=== PATIENT | male | born 1965 | race Caucasian/White ===

== ENCOUNTER 2016-11-03 14:23 | Inpatient (IN) | payer OTHER ==
[2016-11-03] MEDS ORDERED: NS 1,000 ML IV ONE ×2 (14:49→15:56)
--- NOTE | 2016-11-03 14:52 | EDPHY ---
H & P Stated Complaint: n/v/d x 1 month, sent by pcp, low blood pressure, new DM2 med Source: Patient - Personal History Current Tetanus/Diphtheria Vaccine: Unsure Current Tetanus Diphtheria and Acellular Pertussis (TDAP): Unsure - Medical/Surgical History Hx Asthma: No Hx Chronic Respiratory Disease: No Hx Diabetes: No Hx Cardiac Disease: No Hx Renal Disease: No Hx Cirrhosis: No Hx Alcoholism: No Hx HIV/AIDS: No Hx Splenectomy or Spleen Trauma: No Other PMH: DM2, HTN, ankelosing spondylitis, urethral stricture - Social History Smoking Status: Never smoked Time Seen by Provider: 11/03/16 14:38 HPI/ROS: CHIEF COMPLAINT: Nausea vomiting diarrhea HISTORY OF PRESENT ILLNESS: This is a 50-year-old male presenting to the emergency room sent by PCP Dr. Vu for nausea vomiting diarrhea intermittent since mid September. Patient reports having the symptoms with the onset of metformin, metformin was stopped symptoms somewhat resolved. Patient was started on Januvia same symptoms started up again, Januvia discontinued last Sunday symptoms somewhat resolved. Glyburide was started on Sunday nausea vomiting diarrhea lightheaded symptoms started on Sunday, patient discontinued glyburide. Patient states he was able to tolerate water with yogurt this morning no active vomiting today the complaining of nausea and watery diarrhea. Generalized weakness, denies any chest pain or shortness of breath REVIEW OF SYSTEMS: Constitutional: No fever. chills. Generalized weakness decreased p.o. intake Eyes: No discharge. ENT: No sore throat. Cardiovascular: No chest pain, no palpitations. Respiratory: No cough, no shortness of breath. Gastrointestinal: abdominal cramping with nausea vomiting diarrhea Genitourinary: No hematuria. Musculoskeletal: No back pain. Skin: No rashes. Neurological: No headache. (Maria Del Carmen Caballero) - Physical Exam Exam: General Appearance: Alert, no distress. Eyes: Pupils equal and round no pallor or injection. ENT, Mouth: Mucous membranes dry Respiratory: There are no retractions, lungs are clear to auscultation. Cardiovascular: Tachycardia no gallop no murmur Gastrointestinal: Abdomen is soft, nondistended, diffuse tenderness on palpation, no masses, hypoactive bowel sounds . Neurological: No focal deficits Skin: No rash. Pallor Musculoskeletal: Neck is supple nontender. Extremities: symmetrical, full range of motion. Psychiatric: Patient is oriented X 3, there is no agitation. (Maria Del Carmen Caballero) Constitutional: Initial Vital Signs Temperature (C) 36.5 C 11/03/16 14:28 Heart Rate 128 H 11/03/16 14:28 Respiratory Rate 18 11/03/16 14:28 Blood Pressure 78/63 L 11/03/16 14:28 O2 Sat (%) 95 11/03/16 14:28 O2 Delivery Mode Room Air Allergies/Adverse Reactions: No Known Allergies Allergy (Unverified 11/03/16 14:27) Home Medications: Medication Instructions Recorded Cholecalciferol Vit D3 [Vitamin D3 2,000 units PO DAILY 11/03/16 (*)] Diclofenac Sodium 75 mg PO BID PRN 11/03/16 Herbals/Supplements -Info Only 1 ea PO DAILY 11/03/16 Lisinopril [Zestril 20 mg (*)] 20 mg PO DAILY 11/03/16 Ranitidine HCl [Zantac 75] 75 mg PO BID PRN 11/03/16 glyBURIDE [Glyburide] 5 mg PO DAILY 11/03/16 sitaGLIPtin PHOSPHATE [Januvia 100 100 mg PO DAILY 11/03/16 MG (*)] Medical Decision Making ED Course/Re-evaluation: Discussed the plan of care: And IV fluids for dehydration, CBC, BMP, lactate, Zofran 1555: Discussed patient admitted with hospitalist 1600: Discussed advanced with patient, for further treatment and evaluation. Repeat vital signs BP 87/60 hr 87 (Maria Del Carmen Caballero) Differential Diagnosis: Other differential diagnosis considered but not limited to sepsis, gastroenteritis and infectious diarrhea (Maria Del Carmen Caballero) Other Provider: The patient was initially seen and evaluated by Maria Del Carmen BLEVINS. Please see their dictation for complete details. Additionally I obtained the following history: The patient has had ongoing diarrhea since beginning diabetes medications October 02. He was started on Metformin and subsequently developed diarrhea, gas, and body aches. He discontinued the Metformin and started Januvia though his symptoms did not change. He stopped all diabetes medications and diarrhea improved. He re-tried Metformin again and diarrhea returned for 1 day. Switched to Januvia and developed vomiting with continued diarrhea. This week he started Glyburide, by mid week Sunday he was vomiting with diarrhea. The patient saw his PCP who told him to come to the ED for further evaluation. He denies hematemesis or hematochezia. The patient takes Zantac daily for GERD which seems to help. I reviewed the database, medical/surgical history, and ED course. On my physical examination I found the following: Abdomen is benign. Plan: Labs, fluids, and urinalysis. The midlevel and I discussed the care, treatment, and disposition of the patient. (Kristel Alvarez) - Data Points Laboratory Results: Laboratory Results 11/03/16 14:44 11/03/16 14:44 11/03/16 11/03/16 11/03/16 14:44 14:44 14:44 WBC 10.34 10^3/uL H 10^3/uL (3.80-9.50) RBC 5.01 10^6/uL 10^6/uL (4.40-6.38) Hgb 15.2 g/dL g/dL (13.7-17.5) Hct 45.4 % % (40.0-51.0) MCV 90.6 fL fL (81.5-99.8) MCH 30.3 pg pg (27.9-34.1) MCHC 33.5 g/dL g/dL (32.4-36.7) RDW 13.7 % % (11.5-15.2) Plt Count 429 10^3/uL H 10^3/uL (150-400) MPV 8.5 fL L fL (8.7-11.7) Neut % (Auto) 66.2 % % (39.3-74.2) Lymph % (Auto) 19.5 % % (15.0-45.0) [place] % (Auto) 10.7 % % (4.5-13.0) Eos % (Auto) 1.5 % % (0.6-7.6) Baso % (Auto) 0.9 % % (0.3-1.7) Nucleat RBC Rel Count 0.0 % % (0.0-0.2) Absolute Neuts (auto) 6.85 10^3/uL H 10^3/uL (1.70-6.50) Absolute Lymphs (auto) 2.02 10^3/uL 10^3/uL (1.00-3.00) Absolute Monos (auto) 1.11 10^3/uL H 10^3/uL (0.30-0.80) Absolute Eos (auto) 0.15 10^3/uL 10^3/uL (0.03-0.40) Absolute Basos (auto) 0.09 10^3/uL 10^3/uL (0.02-0.10) Absolute Nucleated RBC 0.00 10^3/uL 10^3/uL (0-0.01) Immature Gran % 1.2 % H % (0.0-1.1) Immature Gran # 0.12 10^3/uL H 10^3/uL (0.00-0.10) VBG Lactic Acid Sodium 138 mEq/L mEq/L (134-144) Potassium 4.9 mEq/L mEq/L (3.5-5.2) Chloride 106 mEq/L mEq/L (97-110) Carbon Dioxide 15 mEq/l L mEq/l (22-31) Anion Gap 17 mEq/L H mEq/L (8-16) BUN 68 mg/dL H mg/dL (7-23) Creatinine 6.1 mg/dL H mg/dL (0.7-1.3) Estimated GFR 10 Glucose 129 mg/dL H mg/dL (70-100) Calcium 9.8 mg/dL mg/dL (8.5-10.4) Total Bilirubin 1.4 mg/dL mg/dL (0.1-1.4) Conjugated Bilirubin 0.5 mg/dL mg/dL (0.0-0.5) Unconjugated Bilirubin 0.9 mg/dL mg/dL (0.0-1.1) AST 14 IU/L L IU/L (17-59) ALT 29 IU/L IU/L (21-72) Alkaline Phosphatase 65 IU/L IU/L (38-126) Total Protein 7.3 g/dL g/dL (6.3-8.2) Albumin 4.5 g/dL g/dL (3.5-5.0) 11/03/16 14:44 WBC RBC Hgb Hct MCV MCH MCHC RDW Plt Count MPV Neut % (Auto) Lymph % (Auto) [place] % (Auto) Eos % (Auto) Baso % (Auto) Nucleat RBC Rel Count Absolute Neuts (auto) Absolute Lymphs (auto) Absolute Monos (auto) Absolute Eos (auto) Absolute Basos (auto) Absolute Nucleated RBC Immature Gran % Immature Gran # VBG Lactic Acid 1.4 mmol/L mmol/L (0.7-2.1) Sodium Potassium Chloride Carbon Dioxide Anion Gap BUN Creatinine Estimated GFR Glucose Calcium Total Bilirubin Conjugated Bilirubin Unconjugated Bilirubin AST ALT Alkaline Phosphatase Total Protein Albumin Medications Given: Discontinued Medications Sodium Chloride (Ns) 1,000 mls @ 0 mls/hr IV ONCE ONE PRN Reason: Wide Open Stop: 11/03/16 14:50 Last Admin: 11/03/16 15:00 Dose: 1,000 mls Sodium Chloride (Ns) 1,000 mls @ 0 mls/hr IV ONCE ONE PRN Reason: Wide Open Stop: 11/03/16 15:57 Last Admin: 11/03/16 15:55 Dose: 1,000 mls Ondansetron HCl (Zofran) 4 mg IVP EDNOW ONE Stop: 11/03/16 14:55 Last Admin: 11/03/16 16:04 Dose: Not Given Departure - Departure Disposition: [facility] Inpatient Acute Clinical Impression: Dehydration Acute renal failure (ARF) Qualifiers: Acute renal failure type: unspecified Qualified Code(s): N17.9 - Acute kidney failure, unspecified Condition: Good
[2016-11-03] MEDS ORDERED: ONDANSETRON 4 MG/2 ML VIAL IVP ONE (14:54)
[2016-11-03 14:55] LABS: % IMMATURE GRANULYOCYTES 1.2 % (0.0-1.1); ABSOLUTE IMMATURE GRANULOCYTES 0.12 10^3/uL (0.00-0.10); ADD DIFF? NO; ADD MORPH? NO; ADD SCAN? NO; ATYPICAL LYMPHOCYTE FLAG 10 (0-99); FRAGMENT RBC FLAG 0 (0-99); HEMATOCRIT 45.4 % (40.0-51.0); HEMOGLOBIN 15.2 g/dL (13.7-17.5); LEFT SHIFT FLG 30 (0-99); LIPEMIA HEMOLYSIS FLAG 80 (0-99); MEAN CELL HEMOGLOBIN 30.3 pg (27.9-34.1); MEAN CELL HEMOGLOBIN CONCENTR. 33.5 g/dL (32.4-36.7); MEAN CELL VOLUME 90.6 fL (81.5-99.8); MEAN PLATELET VOLUME 8.5 fL (8.7-11.7); PLATELET CLUMPS FLAG 0 (0-99); PLATELET COUNT 429 10^3/uL (150-400); RED BLOOD CELL COUNT 5.01 10^6/uL (4.40-6.38); RED CELL DISTRIBUTION WIDTH 13.7 % (11.5-15.2)
[2016-11-03 15:10] LABS: ANION GAP 17 mEq/L (8-16); CALCIUM 9.8 mg/dL (8.5-10.4); CARBON DIOXIDE 15 mEq/l (22-31); CHLORIDE 106 mEq/L (97-110); CREATININE 6.1 mg/dL (0.7-1.3); GLOMERULAR FILTRATION RATE 10; GLUCOSE 129 mg/dL (70-100); POTASSIUM 4.9 mEq/L (3.5-5.2); SODIUM 138 mEq/L (134-144)
[2016-11-03 15:34] LABS: ALBUMIN 4.5 g/dL (3.5-5.0); BILIRUBIN,TOTAL 1.4 mg/dL (0.1-1.4); BILIRUBIN-CONJUGATED 0.5 mg/dL (0.0-0.5); BILIRUBIN-UNCONJUGATED 0.9 mg/dL (0.0-1.1); TOTAL PROTEIN 7.3 g/dL (6.3-8.2)
[2016-11-03] MEDS ORDERED: ONDANSETRON 4 MG/2 ML VIAL IVP PRN (17:13)
[2016-11-03] MEDS ORDERED: PROMETHAZINE HCL 25 MG TAB PO PRN (17:13)
[2016-11-03] MEDS ORDERED: ONDANSETRON DISINTEGRATING 4 MG TAB PO PRN (17:13)
[2016-11-03] MEDS ORDERED: LORazepam 2 MG/ML INJ IVP PRN (17:13)
[2016-11-03] MEDS ORDERED: ACETAMINOPHEN 325 MG TAB PO PRN (17:13)
[2016-11-03] MEDS ORDERED: oxyCODONE IR 5 MG TAB PO PRN (17:13)
[2016-11-03] MEDS ORDERED: D50W 25 GM/50 ML SYR IVP PRN (17:18)
[2016-11-03] MEDS ORDERED: DICLOFENAC SODIUM 75 MG TAB PO PRN (17:19)
[2016-11-03] MEDS: NS 1,000 ML IV SCH (17:49)
[2016-11-03] MEDS: INSULIN LISPRO 100 UNIT/ML SC SCH (18:12)
--- NOTE | 2016-11-03 19:03 | PDGENHP ---
History and Physical - Chief Complaint n/v/hypotension - History of Present Illness 50 yo M with PMH of recently diagnosed DM2 presenting with about 1 month of on and off GI sxs including n/v/diarrhea that he believes has been precipitated by his new DM meds. He states he was diagnosed with DM in August, and started on an uptitration of metformin. He did well initially, but when he got to 4 tablets per day, he began having significant diarrhea for 3-4 days. When he spoke to his rough rounder machine, a plan was made to switch him to Januvia, unfortunately he began again having the same sxs. He was then switched to glyburide but again had the same issues. He notes he had profuse diarrhea most of the month, along with n/v and abdominal pain. He went to see his PCP today, who became concerned that he looked awful and that his bp was low, and he was sent here for further eval. During the last month, he has not had any labs checked. He takes diclofenac for ankylosing spondylitis and has been on lisinopril for hypertension. He notes he continued taking both of those medications, though slightly less regularly. He states he has not been urinating as much as he normally does and he is not sure he is emptying his bladder all the way when he goes. He has had urethral strictures in the past and is followed by Dr. Sullivan. He has lost 24 pounds unintentionally over the last 3 weeks. History Information - Allergies/Home Medication List Allergies/Adverse Reactions: No Known Allergies Allergy (Unverified 11/03/16 14:27) Home Medications: Cholecalciferol Vit D3 [Vitamin D3 (*)] 2,000 units PO DAILY 11/03/16 [Last Taken Unknown] Diclofenac Sodium 75 mg PO BID PRN 11/03/16 [Last Taken 11/02/16] Herbals/Supplements -Info Only 1 ea PO DAILY 11/03/16 [Last Taken Unknown] Lisinopril [Zestril 20 mg (*)] 20 mg PO DAILY 11/03/16 [Last Taken Unknown] Ranitidine HCl [Zantac 75] 75 mg PO BID PRN 11/03/16 [Last Taken 11/02/16] glyBURIDE [Glyburide] 5 mg PO DAILY 11/03/16 [Last Taken 11/01/16] sitaGLIPtin PHOSPHATE [Januvia 100 MG (*)] 100 mg PO DAILY 11/03/16 [Last Taken 10/27/16] I have personally reviewed and updated: family history, medical history, social history, surgical history - Past Medical History diabetes type 2, GERD, hypertension Additional medical history: gout. ankylosing spondylitis. urethral stricture s /p multiple interventions. esophageal ring/stricture s/p multiple dilations - Surgical History Additional surgical history: cystoscopy for urethral stricture - Family History Positive for: non-pertinent Additional family history: patient adopted--family hx unknown - Social History Smoking Status: Never smoked Alcohol Use: Sober (quit 3 months ago) Drug Use: None Review of Systems ROS: 10pt was reviewed & negative except for what was stated in HPI & below Physical Exam Temp Pulse Resp BP Pulse Ox 36.7 C 84 16 115/70 96 11/03/16 17:03 11/03/16 17:03 11/03/16 17:03 11/03/16 17:03 11/03/16 17:03 Constitutional: no apparent distress, appears nourished Eyes: PERRL, anicteric sclera Ears, Nose, Mouth, Throat: moist mucous membranes, hearing normal Cardiovascular: regular rate and rhythym, no murmur, rub, or gallop, No edema Respiratory: no respiratory distress, no rales or rhonchi Gastrointestinal: normoactive bowel sounds, soft, non-tender abdomen, no palpable masses Genitourinary: no bladder fullness, no bladder tenderness Skin: warm, normal color Musculoskeletal: full muscle strength, no muscle tenderness, No asymmetric calves Neurologic: AAOx3 Psychiatric: interacting appropriately, not anxious, not encephalopathic Lab Data & Imaging Review 11/03/16 14:44 11/03/16 14:44 WBC 10.34 10^3/uL (3.80-9.50) H 11/03/16 14:44 RBC 5.01 10^6/uL (4.40-6.38) 11/03/16 14:44 Hgb 15.2 g/dL (13.7-17.5) 11/03/16 14:44 Hct 45.4 % (40.0-51.0) 11/03/16 14:44 MCV 90.6 fL (81.5-99.8) 11/03/16 14:44 MCH 30.3 pg (27.9-34.1) 11/03/16 14:44 MCHC 33.5 g/dL (32.4-36.7) 11/03/16 14:44 RDW 13.7 % (11.5-15.2) 11/03/16 14:44 Plt Count 429 10^3/uL (150-400) H 11/03/16 14:44 MPV 8.5 fL (8.7-11.7) L 11/03/16 14:44 Neut % (Auto) 66.2 % (39.3-74.2) 11/03/16 14:44 Lymph % (Auto) 19.5 % (15.0-45.0) 11/03/16 14:44 [place] % (Auto) 10.7 % (4.5-13.0) 11/03/16 14:44 Eos % (Auto) 1.5 % (0.6-7.6) 11/03/16 14:44 Baso % (Auto) 0.9 % (0.3-1.7) 11/03/16 14:44 Nucleat RBC Rel Count 0.0 % (0.0-0.2) 11/03/16 14:44 Absolute Neuts (auto) 6.85 10^3/uL (1.70-6.50) H 11/03/16 14:44 Absolute Lymphs (auto) 2.02 10^3/uL (1.00-3.00) 11/03/16 14:44 Absolute Monos (auto) 1.11 10^3/uL (0.30-0.80) H 11/03/16 14:44 Absolute Eos (auto) 0.15 10^3/uL (0.03-0.40) 11/03/16 14:44 Absolute Basos (auto) 0.09 10^3/uL (0.02-0.10) 11/03/16 14:44 Absolute Nucleated RBC 0.00 10^3/uL (0-0.01) 11/03/16 14:44 Immature Gran % 1.2 % (0.0-1.1) H 11/03/16 14:44 Immature Gran # 0.12 10^3/uL (0.00-0.10) H 11/03/16 14:44 VBG Lactic Acid 1.4 mmol/L (0.7-2.1) 11/03/16 14:44 Sodium 138 mEq/L (134-144) 11/03/16 14:44 Potassium 4.9 mEq/L (3.5-5.2) 11/03/16 14:44 Chloride 106 mEq/L (97-110) 11/03/16 14:44 Carbon Dioxide 15 mEq/l (22-31) L 11/03/16 14:44 Anion Gap 17 mEq/L (8-16) H 11/03/16 14:44 BUN 68 mg/dL (7-23) H 11/03/16 14:44 Creatinine 6.1 mg/dL (0.7-1.3) H 11/03/16 14:44 Estimated GFR 10 11/03/16 14:44 Glucose 129 mg/dL (70-100) H 11/03/16 14:44 POC Glucose 74 mg/dL (70-100) 11/03/16 17:35 Calcium 9.8 mg/dL (8.5-10.4) 11/03/16 14:44 Total Bilirubin 1.4 mg/dL (0.1-1.4) 11/03/16 14:44 Conjugated Bilirubin 0.5 mg/dL (0.0-0.5) 11/03/16 14:44 Unconjugated Bilirubin 0.9 mg/dL (0.0-1.1) 11/03/16 14:44 AST 14 IU/L (17-59) L 11/03/16 14:44 ALT 29 IU/L (21-72) 11/03/16 14:44 Alkaline Phosphatase 65 IU/L (38-126) 11/03/16 14:44 Total Protein 7.3 g/dL (6.3-8.2) 11/03/16 14:44 Albumin 4.5 g/dL (3.5-5.0) 11/03/16 14:44 Assessment & Plan Assessment: Acute renal failure (ARF) (Acute) Dehydration (Acute) 50 yo M with relatively new dx of DM admitted with ARDEN in setting of 1 month of n/v/diarrhea # ARDEN: likely pre renal versus ischemic ATN given history of prolonged n/v/ diarrhea, weight loss and hypotension. This occurred in the setting of new tx for DM and likely ARDEN exacerbated by continued lisinopril and diclofenac use. Unfortunately, no labs drawn earlier, so unclear when renal function began to decline, but now creatinine of 6 from prior baseline of 1.2. Will check urine studies including UA, urine Na, creatinine as well as renal US and bladder scan. Will hold lisinopril/diclofenac and continue IVF overnight. If all pre renal would expect significant improvement, if not will need to consult renal in am. Has hx of urethral stricture and prior arden related to same, US to eval for s/s of hydro. Patient followed by Dr. Sullivan. # DM: with significant side effects to metformin, januvia and glyburide. SSI for now, currently blood sugars slightly low. # HTN: holding dale-i, bp currently on the low end in setting of above # GERD: continue ranitidine # ankylosing spondylitis: on diclofenac as an OP which is held given arden, will start prn opiates, he is followed by rheum # dispo: IP status, high risk presenting issue requiring close monitoring in house Patient new to my care. Old records reviewed and summarized as above. Care plan reviewed with ER doctor including plans for w/u of ARDEN.
[2016-11-03 20:40] LABS: COLOR YELLOW; LEUKOCYTE ESTERASE,URINE NEGATIVE (NEGATIVE); NITRITE,URINE NEGATIVE (NEGATIVE)
[2016-11-03 20:50] LABS: MUCUS TRACE /lpf (NONE-1+)
[2016-11-03] MEDS: HEPARIN 5,000 UNIT/0.5 ML SYR SC SCH (21:01)
[2016-11-04] MEDS: NS 1,000 ML IV SCH ×4 (00:38→20:07)
[2016-11-04 05:14] LABS: % IMMATURE GRANULYOCYTES 0.9 % (0.0-1.1); ABSOLUTE IMMATURE GRANULOCYTES 0.06 10^3/uL (0.00-0.10); ADD DIFF? NO; ADD MORPH? NO; ADD SCAN? NO; ATYPICAL LYMPHOCYTE FLAG 10 (0-99); FRAGMENT RBC FLAG 0 (0-99); HEMATOCRIT 36.2 % (40.0-51.0); HEMOGLOBIN 11.7 g/dL (13.7-17.5); LEFT SHIFT FLG 40 (0-99); LIPEMIA HEMOLYSIS FLAG 80 (0-99); MEAN CELL HEMOGLOBIN 29.9 pg (27.9-34.1); MEAN CELL HEMOGLOBIN CONCENTR. 32.3 g/dL (32.4-36.7); MEAN CELL VOLUME 92.6 fL (81.5-99.8); MEAN PLATELET VOLUME 8.5 fL (8.7-11.7); PLATELET CLUMPS FLAG 0 (0-99); PLATELET COUNT 322 10^3/uL (150-400); RED BLOOD CELL COUNT 3.91 10^6/uL (4.40-6.38); RED CELL DISTRIBUTION WIDTH 13.7 % (11.5-15.2)
[2016-11-04 05:33] LABS: ANION GAP 8 mEq/L (8-16); CALCIUM 8.8 mg/dL (8.5-10.4); CARBON DIOXIDE 18 mEq/l (22-31); CHLORIDE 115 mEq/L (97-110); CREATININE 3.2 mg/dL (0.7-1.3); GLOMERULAR FILTRATION RATE 21; GLUCOSE 81 mg/dL (70-100); POTASSIUM 5.4 mEq/L (3.5-5.2); SODIUM 141 mEq/L (134-144)
[2016-11-04] MEDS: HEPARIN 5,000 UNIT/0.5 ML SYR SC SCH ×3 (05:53→21:57)
[2016-11-04] MEDS ORDERED: FAMOTIDINE 20 MG TAB PO PRN (09:00)
[2016-11-04] MEDS: INSULIN LISPRO 100 UNIT/ML SC SCH ×3 (09:18→19:25)
--- NOTE | 2016-11-04 09:27 | HOSPPROG ---
Hospitalist Progress Note Assessment/Plan: Patient is a 50 yo M with new dx of DM admitted with ARDEN in setting of 1 month of n/v/diarrhea. Today is my first encounter with the patient/chart reviewed. *Acute renal failure likely due to dehydration had n/v/diarrhea had dose of Metformin increased recently urine studies show no protein, Na 29 ultrasound pending on normal saline will ask Dr Alarcon to follow even though he has improved *Hyperkalemia mild/will recheck in a.m. *hx of urethral stricture f/u with Dr Sullivan *DM newly diagnosed holding all oral agents glucoses stable *HTN ACEI / on hold due to the above *GERD Ranitidine *Ankylosing spondylitis diclofenac on hold/prn opiates followed by rheumatology *Plan: Dr Alarcon to see today/ patient is very anxious to be dc/ explained to him with his elevated creat, he will likely need another midnight. Subjective: D is feeling much better today/would very much like to go home, but is willing to stay if necessary. Objective: Vital Signs Temp Pulse Resp BP Pulse Ox 36.9 C 74 18 99/63 L 96 11/04/16 08:00 11/04/16 08:00 11/04/16 08:00 11/04/16 08:00 11/04/16 08:00 Laboratory Results 11/04/16 04:15 11/04/16 04:15 11/03/16 11/04/16 11/05/16 05:59 05:59 05:59 Intake Total 2000 Output Total 750 800 Balance 1250 -800 - Physical Exam Constitutional: no apparent distress, appears nourished Eyes: PERRL Ears, Nose, Mouth, Throat: hearing normal Cardiovascular: regular rate and rhythym, no murmur, rub, or gallop Respiratory: no respiratory distress Skin: warm, normal color Musculoskeletal: full muscle strength Neurologic: AAOx3 Psychiatric: interacting appropriately, not anxious ICD10 Worksheet Patient Problems: Problems Problem Status Onset Acute renal failure (ARF) Acute Dehydration Acute
--- NOTE | 2016-11-04 13:17 | GCON ---
[f rep st] CONSULTATION NEPHROLOGY CONSULTATION DATE OF CONSULTATION: 11/04/2016 REASON FOR CONSULTATION: Acute kidney injury. 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 H istory was obtained from the patient, who is an excellent historian. Additional history was obtaine d through the medical records. The patient was in his baseline state of health when screening studies demonstrated an elevated fast ing glucose. He went on to have a hemoglobin A1c which was increased at 8.2. Since that time, he h as worked on diet and exercise, but he has also been tried on oral diabetic medications. He was ini tially started on metformin, but ultimately developed diarrhea with this. He has since been tried o n Januvia and is having similar symptoms. The patient switched back and took an additional dose of metformin and developed even worsening diarrhea. Around that time, he began developing orthostasis and weakness. Further evaluation revealed significant hypotension, and he was referred to the emerg ency room, where he was found to be in acute kidney injury. Since that time, he has been responding well to intravenous saline. The patient has ankylosing spondylitis. He follows with Rheumatology for this. He is on diclofenac 75 mg p.o. b.i.d. This medicine made his blood pressure worse, and he was started on lisinopril. With this, his creatinine was running in the low 1's. His blood pressure was coming under better co ntrol. At the time of admission, the patient's creatinine level was 6.1, with a baseline of approximately 1 .3. As related to the above issues, we were asked by Aggie Suresh to assist in the patient's tasneem al diagnosis and management. PAST MEDICAL HISTORY: 1. Diabetes mellitus type 2, recent diagnosis, following with Dr. Kristel Andrews. 2. Hypertension. 3. Ankylosing spondylitis. 4. Gout. PAST SURGICAL HISTORY: Includes cystoscopy for urethral stricture. ALLERGIES: No known allergies. HOME MEDICATIONS: Vitamin D 2000 units daily, diclofenac 75 mg b.i.d., herbals and supplements peng y, lisinopril 20 mg daily, ranitidine 75 mg b.i.d., glyburide 5 mg daily. FAMILY HISTORY: The patient is adopted. SOCIAL HISTORY: The patient is single. He lives in [place]. 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 He grew up in [facility]. He does not drink alcohol or smoke cigarettes. REVIEW OF SYSTEMS: A full 12-system review was obtained. This is notable primarily for his signifi cant weakness and orthostasis on presentation. He was having nausea, vomiting and diarrhea. All ot her findings on the review are essentially negative. PHYSICAL EXAM: GENERAL: At the time of exam, the patient is comfortable, appropriate and alert. V ITAL SIGNS: Temperature 36.9, pulse 74, blood pressure 99/63. HEENT: The patient is normocephalic , atraumatic. Eyes show sclerae are clear. Oropharynx shows some coating on the tongue, otherwise normal. NECK: No lymphadenopathy, thyromegaly. LUNGS: Clear to auscultation bilaterally. CARDIO VASCULAR: Regular rate and rhythm, without gallops or rubs. ABDOMEN: Soft, nontender. No organom egaly. /RECTAL: Deferred. EXTREMITIES: No lower extremity edema. INTEGUMENT: Generally clear . NEURO: No focal findings. LABORATORY STUDIES: Urinalysis normal, urine sodium 29, urine creatinine 190.2. White count 6.8, h ematocrit 36.2, platelets 322. Sodium 141, potassium 5.4, chloride 115, bicarb 18, creatinine 3.2. IMPRESSION AND PLAN: 1. Acute kidney injury. The patient has hemodynamically mediated acute kidney injury. He is also already showing a very nice recovery. a. I spent time reviewing renal hemodynamics with the patient. The combination of his nonsteroidal and his HO inhibitor does cause significant issues with auto regulation when he becomes dry. Thus , his acute kidney injury was exacerbated in the face of decreased intravascular volume. b. The patient appeared to be tolerating the combo reasonably well, but at this point, I do think i t is reasonable to choose another antihypertensive agent when appropriate if he is going to take non steroidals long-term. At this point, the patient does not have evidence of chronic kidney disease o r albuminuria. Again, he will likely be discharged off any antihypertensive, and one can be added i n the future. 2. Hypertension. Please see above. The patient's blood pressure was exacerbated by the nonsteroid al. This is not surprising. A sodium restriction may be helpful in that setting once his diarrhea is resolved. 3. Metabolic acidosis. This is improving with resolution of his renal failure. He does not have a n anion gap, so I am not concerned about lactic acidosis. 4. Gout. This appears fairly infrequent. Again, this has been a more recent problem. 5. Anemia. The patient may have some anemia present. We will follow him during the course of his hydration. 6. Hyperkalemia. This was mild. We will put him on a potassium restriction. I expect this to res olve. Thank you for allowing us to participate in this gentleman's care. We will continue to follow him c losely with you. /[id number]/MODL
[2016-11-04 14:54] LABS: ANION GAP 10 mEq/L (8-16); CARBON DIOXIDE 19 mEq/l (22-31); CHLORIDE 112 mEq/L (97-110); CREATININE 2.1 mg/dL (0.7-1.3); GLOMERULAR FILTRATION RATE 34; GLUCOSE 116 mg/dL (70-100); SODIUM 141 mEq/L (134-144)
[2016-11-05] MEDS: NS 1,000 ML IV SCH (02:44)
[2016-11-05 04:34] LABS: ABSOLUTE IMMATURE GRANULOCYTES 0.06 10^3/uL (0.00-0.10); ADD DIFF? NO; ADD MORPH? NO; ADD SCAN? NO; ATYPICAL LYMPHOCYTE FLAG 10 (0-99); FRAGMENT RBC FLAG 0 (0-99); HEMATOCRIT 34.3 % (40.0-51.0); HEMOGLOBIN 11.1 g/dL (13.7-17.5); LEFT SHIFT FLG 20 (0-99); LIPEMIA HEMOLYSIS FLAG 80 (0-99); MEAN CELL HEMOGLOBIN 29.8 pg (27.9-34.1); MEAN CELL HEMOGLOBIN CONCENTR. 32.4 g/dL (32.4-36.7); MEAN CELL VOLUME 92.2 fL (81.5-99.8); MEAN PLATELET VOLUME 8.2 fL (8.7-11.7); PLATELET CLUMPS FLAG 10 (0-99); PLATELET COUNT 303 10^3/uL (150-400); RED BLOOD CELL COUNT 3.72 10^6/uL (4.40-6.38); RED CELL DISTRIBUTION WIDTH 13.4 % (11.5-15.2)
[2016-11-05 04:51] LABS: ANION GAP 10 mEq/L (8-16); CALCIUM 9.1 mg/dL (8.5-10.4); CARBON DIOXIDE 18 mEq/l (22-31); CHLORIDE 119 mEq/L (97-110); CREATININE 1.6 mg/dL (0.7-1.3); GLOMERULAR FILTRATION RATE 46; GLUCOSE 86 mg/dL (70-100); POTASSIUM 5.2 mEq/L (3.5-5.2); SODIUM 147 mEq/L (134-144)
[2016-11-05] MEDS: HEPARIN 5,000 UNIT/0.5 ML SYR SC SCH (05:19)
--- NOTE | 2016-11-05 08:43 | HOSPPROG ---
Hospitalist Progress Note Assessment/Plan: Patient is a 50 yo M with new dx of DM admitted with ARDEN in setting of 1 month of n/v/diarrhea. *Acute renal failure likely due to dehydration much improved repeat labs w PCP this week *Hyperkalemia resolved *hx of urethral stricture f/u with Dr Sullivan *DM newly diagnosed holding all oral agents glucoses stable *HTN ACEI / on hold due to the above *GERD Ranitidine *Ankylosing spondylitis diclofenac on hold/prn opiates followed by rheumatology *Plan: dc home Subjective: D is feeling well/ no complaints. Objective: Vital Signs Temp Pulse Resp BP Pulse Ox 36.9 C 77 14 133/92 H 95 11/05/16 04:00 11/05/16 04:00 11/05/16 04:00 11/05/16 04:00 11/05/16 04:00 Laboratory Results 11/05/16 04:10 11/05/16 04:10 11/04/16 11/05/16 11/06/16 05:59 05:59 05:59 Intake Total 2000 3200 Output Total 750 3350 Balance 1250 -150 - Physical Exam Constitutional: no apparent distress, appears nourished, not in pain Eyes: PERRL Ears, Nose, Mouth, Throat: hearing normal Respiratory: no respiratory distress Gastrointestinal: normoactive bowel sounds Skin: warm, normal color Musculoskeletal: no muscle tenderness Neurologic: AAOx3 Psychiatric: interacting appropriately ICD10 Worksheet Patient Problems: Problems Problem Status Onset Acute renal failure (ARF) Acute Dehydration Acute
[2016-11-05 09:00] VITALS: BP 113/76; PULSE 81; RESP 18; TEMP 98.3; O2SAT 94
--- NOTE | 2016-11-05 09:14 | GDS ---
[f rep st] DISCHARGE SUMMARY DISCHARGE DIAGNOSES: 1. Acute kidney injury, resolving. 2. Hyperkalemia. 3. History of urethral stricture. 4. Diabetes mellitus type 2. 5. Hypertension. 6. Gastroesophageal reflux disease. 7. Ankylosing spondylitis. CONSULTATIONS DURING HIS STAY: Eric Alarcon MD BRIEF HISTORY: The patient is a 50-year-old male, who has a past medical history significant for type 2 diabetes and hypertension. He presented to the emergency room with acute kidney injury. He recently saw his sharepoint engineer. He had a hemoglobin A1c at 8.2. He was started on oral diabetic medications. Initially on metformin but developed diarrhea, then he tried Januvia and had similar symptoms and then tried glyburide. He also has ankylosing spondylitis. He is on diclofenac 75 mg p.o. b.i.d. which caused some hypertension and he was started on lisinopril. On admission, his creatinine was 6.1. He was hydrated. Today, his creatinine is 1.6 with a baseline of 1.3. Recommending at this time that he stay off his HO inhibitor and oral agents till further followup with his primary care provider. HOSPITAL COURSE PER PROBLEM: 1. Acute kidney injury, much improved. This is due to dehydration in the setting of using an HO inhibitor, as well as diabetic oral agents. 2. Hyperkalemia, resolved. 3. History of urethral stricture. Further followup with Dr. Sullivan. 4. Diabetes type 2. His fasting glucoses have been stable. This morning, his glucose is 86. Recommending a repeat hemoglobin A1c. 5. Hypertension. Blood pressure has been overall normotensive during his stay. 6. GERD on ranitidine. 7. Ankylosing spondylitis. Recommending that he hold the diclofenac until his kidney function is completely stable. PENDING LABS AND TESTS: None. CONDITION AT DISCHARGE: Stable. Blood pressure is 133/92. O2 sats on room air 95%, respiratory rate is 14, temperature is 36.9 Celsius. MEDICATIONS AT DISCHARGE: Please see the EMR. DISCHARGE INSTRUCTIONS: 1. Recommending that he hold his lisinopril and hold all oral diabetic agents, as well as his diclofenac. 2. Follow up with Dr. Tulio Vu and get a repeat chemistry panel done this week. Greater than 30 minutes discharging and coordinating care. /[id number]/MODL MTDD
[2016-11-05] MEDS: INSULIN LISPRO 100 UNIT/ML SC SCH (10:22)
== END 2016-11-05 11:01 | disposition home or self-care (01) | DRG 683 ==
LOC: F3E 16:54
PROVIDERS: ADMIT Internal Medicine; ATTEND Internal Medicine
DX: N17.9 Acute kidney failure, unspecified (principal); E87.2 Acidosis; E87.5 Hyperkalemia; E11.9 Type 2 diabetes mellitus without complications; K21.9 Gastro-esophageal reflux disease without esophagitis; M45.9 Ankylosing spondylitis of unspecified sites in spine; I10 Essential (primary) hypertension; E86.0 Dehydration; D64.9 Anemia, unspecified; M10.9 Gout, unspecified

== ENCOUNTER → 2017-03-19 | Outpatient (CLI) | payer OTHER | LOC: BMCIMAGING 15:37 | PROVIDERS: ATTEND Internal Medicine Rheumatology | DX: M53.3 Sacrococcygeal disorders, not elsewhere classified (principal); M45.8 Ankylosing spondylitis sacral and sacrococcygeal region ==

== ENCOUNTER 2017-04-06 11:41 | Day surgery (SDC) | payer OTHER ==
[2017-04-06] MEDS ORDERED: ceFAZolin 2 GM/DEXTROSE 100 ML IV ONE (11:54)
[2017-04-06] MEDS ORDERED: LR 1,000 ML IV ONE (11:55)
[2017-04-06] MEDS ORDERED: LIDOCAINE 1% 2 ML INJ ID PRN (11:55)
[2017-04-06 12:10] VITALS: PULSE 68
--- NOTE | 2017-04-06 12:40 | PDHPUP ---
History & Physical Update H&P update statement: This history and physical update is based on an assessment of the patient which was completed after admission or registration (within 24 hours), but prior to the surgery/procedure. H&P update: H&P reviewed & patient examined, no change in patient's condition since H&P completed
[2017-04-06] MEDS ORDERED: fentaNYL 100 MCG/2 ML INJ ONE (12:59)
[2017-04-06] MEDS ORDERED: PROPOFOL 200 MG/20 ML VIAL ONE (12:59)
[2017-04-06] MEDS ORDERED: DEXAMETHASONE 4 MG/ML VIAL ONE ×2 (13:00)
[2017-04-06] MEDS ORDERED: LIDOCAINE 2% 100 MG/5 ML SYR ONE (13:00)
[2017-04-06] MEDS ORDERED: MIDAZOLAM 2 MG/2 ML VIAL ONE (13:10)
--- NOTE | 2017-04-06 13:30 | PDANEPAE ---
ANE Past Medical History - Cardiovascular History Hx Hypertension: No Hx Arrhythmias: No Hx Chest Pain: No Hx Coronary Artery / Peripheral Vascular Disease: No Hx CHF / Valvular Disease: No Hx Palpitations: No - Pulmonary History Hx COPD: No Hx Asthma/Reactive Airway Disease: No Hx Recent Upper Respiratory Infection: No Hx Oxygen in Use at Home: No Hx Sleep Apnea: No Sleep Apnea Screening Result - Last Documented: Positive - Neurologic History Hx Cerebrovascular Accident: No Hx Seizures: No Hx Dementia: No - Endocrine History Hx Diabetes: No - Renal History Hx Renal Disorders: Yes Renal History Comment: URETHRAL STRICTURES,. ARF resolved - Liver History Hx Hepatic Disorders: No - Neurological & Psychiatric Hx Hx Neurological and Psychiatric Disorders: No - Cancer History Hx Cancer: No - Congenital Disorder History Hx Congenital Disorders: No - GI History Hx Gastrointestinal Disorders: No - Other Health History Other Health History: NONE - Chronic Pain History Chronic Pain: No - Surgical History Prior Surgeries: URETHRAL STRICTURE RELEASE,. AND EMERCENCY RELEASES ANE Review of Systems Review of Systems: - Exercise capacity METS (RN): 6 METS ANE Patient History - Allergies Allergies/Adverse Reactions: No Known Allergies Allergy (Verified 03/22/17 10:26) - Home Medications Home Medications: Cholecalciferol Vit D3 [Vitamin D3 (*)] 11/03/16 [Last Taken 04/05/17] Herbals/Supplements -Info Only 11/03/16 [Last Taken Unknown] Acetaminophen [Tylenol 325mg (*)] 03/22/17 [Last Taken 04/04/17] - NPO status NPO Since - Liquids (Date): 04/06/17 NPO Since - Liquids (Time): 09:00 NPO Since - Solids (Date): 04/05/17 NPO Since - Solids (Time): 18:00 - Smoking Hx Smoking Status: Never smoked - Family Anes Hx Family Hx Anesthesia Complications: NONE ANE Labs/Vital Signs - Vital Signs Blood Pressure: 144/93 Heart Rate: 68 Respiratory Rate: 18 O2 Sat (%): 97 Height: 177.8 cm Weight: 86.636 kg ANE Physical Exam - Airway Neck exam: FROM Mallampati Score: Class 2 Mouth exam: normal dental/mouth exam - Pulmonary Pulmonary: no respiratory distress - Cardiovascular Cardiovascular: regular rate and rhythym - ASA Status ASA Status: II ANE Anesthesia Plan Anesthesia Plan: GA w LMA Urgent/Emergent Case: Jorge slater completed preop but documented later for safe timely pt care
[2017-04-06] MEDS ORDERED: ONDANSETRON 4 MG/2 ML VIAL IVP PRN (13:44)
[2017-04-06] MEDS ORDERED: ALBUTEROL 3 ML DEYVIAL IH PRN (13:44)
[2017-04-06] MEDS ORDERED: NALOXONE HCL 0.4 MG/ML INJ IVP PRN (13:44)
[2017-04-06] MEDS ORDERED: fentaNYL 100 MCG/2 ML INJ IVP PRN (13:44)
--- NOTE | 2017-04-06 13:44 | POSTANESTH ---
Post Anesthetic Evaluation Cardiovascular Status: Similar to Pre-Op Cond Respiratory Status: Similar to Pre-op Cond. Level of Consciousness/Mental Status: Mildly Sleepy, Arousable Pain Control: Adequate, Prn Tx Ordered Nausea/Vomiting Control: Adequate, Prn Tx Ordered Complications Possibly Related to Anesthesia: None Noted
--- NOTE | 2017-04-06 13:44 | POSTOPPROG ---
Post Op Note Date of Operation: 04/06/17 Surgeon: Tab Sullivan Anesthesia: LMA Pre-op Diagnosis: Urethral stricture disease Post-op Diagnosis: same Procedure: Direct visual internal urethrotomy Findings: 2.5 cm long stricture distal to external sphincter Inf/Abcess present in the surg proc area at time of surgery?: No EBL: Minimal
[2017-04-06 14:28] VITALS: O2SAT 97
[2017-04-06 15:09] VITALS: BP 110/70
[2017-04-06 15:15] VITALS: RESP 16; TEMP 97.9
--- NOTE | 2017-04-06 18:00 | GOP ---
[f rep st] OPERATIVE REPORT DATE OF OPERATION: 04/06/2017 SURGEON: Tab Sullivan MD PREOPERATIVE DIAGNOSIS: Recurrent urethral stricture disease. POSTOPERATIVE DIAGNOSIS: Recurrent urethral stricture disease. PROCEDURE PERFORMED: Cystoscopy with direct visual internal urethrotomy. FINDINGS: INDICATIONS: The patient is a 51-year-old male with a recurrent proximal urethral stricture. He rec ently developed slowing of his urinary stream and urethroscopy in the office showed recurrence of the stricture. Options were discussed. He elected to come in for repeat DVIU. DESCRIPTION OF PROCEDURE: After informed consent and with general LMA anesthesia, the patient was pl aced in the lithotomy position with his genitalia sterilely prepped and draped. The visual urethroto me scope was inserted to the level of the stricture. At the 12 o'clock position, the stricture was i ncised full thickness into the corporal tissue. The scope was then advanced through the sphincter an d into the bladder, which showed 2+ trabeculation, but no other abnormalities. The stricture was fur ther incised proximally and distally taking care to avoid the sphincter. The scope was removed. The patient was awakened and transferred to the recovery room in stable condition. There were no intrao perative complications, specimens, or blood loss. /[id number]/MODL
== END 2017-04-06 14:58 | disposition home or self-care (01) ==
LOC: FSGY 11:41
PROVIDERS: ATTEND Urology
PROC: 0TND8ZZ Release Urethra, Via Natural or Artificial Opening Endoscopic (ICD-10-PCS; principal; 2017-04-06 13:00)
DX: N35.9 Urethral stricture, unspecified (principal)
CPT/HCPCS: J0690; J1100; J2001; J2250; J2704; J3010